=== PATIENT | female | born 1970 | race Caucasian/White ===

== ENCOUNTER 2019-11-25 11:13 | Emergency (ER) | payer OTHER, SELFPAY ==
[2019-11-25 11:24] VITALS: BP 136/85; PULSE 77; RESP 18; TEMP 36.6; O2SAT 100
--- NOTE | 2019-11-25 11:37 | ED.URI ---
HPI - URI/Sore Throat General Chief Complaint: Upper Respiratory Infection Stated Complaint: diarrhea,headache,body aches Time Seen by Provider: 11/25/19 11:37 Source: patient Mode of arrival: ambulatory Limitations: no limitations History of Present Illness HPI Narrative: Jaja Maria is a 49 yo female with no PMH with c/o body aches, diarrhea, fatigue. Started having symptoms 3 days ago and is gradually progressed is unable to eat, very fatigued, diarrhea and stomach cramping Related Data Allergies Allergy/AdvReac Type Severity Reaction Status Date / Time No Known Allergies Allergy Verified 07/19/19 07:31 Review of Systems Review of Systems: Narrative: CONSTITUTIONAL: Denies fever, chills, sweats.Has fatigue EYES: Denies visual changes, redness, discharge. ENT: Denies rhinorrhea, congestion, sore throat, otalgia. CARDIOVASCULAR: Denies chest pain, palpitations, edema. RESPIRATORY: Denies dyspnea, wheezing, occ cough GASTROINTESTINAL: has abdominal pain, nausea, no vomiting, has diarrhea. GENITOURINARY: Denies dysuria, hematuria, abnormal discharge SKIN: Denies rash or itching. NEUROLOGIC: Denies numbness, or focal weakness. PSYCHIATRIC: Denies anxiety or depression. 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 HEAD: normocephalic, atraumatic. EYES: Sclera clear/white. Vision is grossly intact. EARS: External ears normal, auditory canals clear and without drainage, TMs normal without perforation. Hearing grossly intact. NOSE: External nose normal without nasal discharge, nares with redness, no rhinorrhea. THROAT: Mucous membranes moist, posterior pharynx erythema NECK: Neck supple, non-tender CARDIOVASCULAR: Regular rate and rhythm without murmurs, gallops, or rubs. RESPIRATORY: Clear to auscultation. Breath sounds equal bilaterally. No wheezes, rales, or rhonchi. GASTROINTESTINAL: Abdomen soft, non-tender, SKIN: warm, intact with no suspicious lesions or rash, good texture and turgor. NEURO: awake, alert, and oriented to person, place and time. There were no obvious focal neurologic abnormalities. Steady gait EXTREMITIES: Normal range of motion. BACK: Nontender without deformity Course Course Emergency Course: Given Toradol IM here Started on Protonix and Imodium for upset stomach and diarrhea/abdominal cramping. Sent for COVID testing; discussed isolation until test results are back and to rest and hydrate at home Vital Signs Vital signs: Vital Signs Temperature 97.9 F 11/25/19 11:24 Pulse Rate 77 11/25/19 11:24 Respiratory Rate 18 11/25/19 11:24 Blood Pressure 136/85 11/25/19 11:24 Pulse Oximetry 100 11/25/19 11:24 Temperature 97.9 F 11/25/19 11:24 Pulse Rate 77 11/25/19 11:24 Respiratory Rate 18 11/25/19 11:24 Blood Pressure 136/85 11/25/19 11:24 Pulse Oximetry 100 11/25/19 11:24 MDM - URI/Sore Throat Differential Diagnosis Differential diagnosis: Likely upper respiratory infection, sinusitis, viral infection, influenza and other Discharge Plan Discharge Clinical Impression: Viral infection Diarrhea Qual
[2019-11-25] MEDS: KETOROLAC (*BKC) 60 MG/2 ML VIAL IM (12:08)
== END 2019-11-25 12:30 | disposition home or self-care (01) ==
PROVIDERS: Emergency Provider Nurse Practitioner
DX: B34.9 Viral infection, unspecified (principal); Z20.828 Contact with and (suspected) exposure to other viral communicable diseases
CPT/HCPCS: 96372; 99213; G0463; J1885

== ENCOUNTER 2019-12-23 14:20 | Emergency (ER) | payer OTHER, SELFPAY ==
[2019-12-23 14:30] VITALS: BP 142/82; PULSE 75; RESP 16; TEMP 37; O2SAT 100
--- NOTE | 2019-12-23 14:39 | ED.URI ---
HPI - URI/Sore Throat General Chief Complaint: Headache Stated Complaint: headache Time Seen by Provider: 12/23/19 14:39 Source: patient Mode of arrival: ambulatory Limitations: no limitations History of Present Illness HPI Narrative: Jaja Maria is a 49 yo female with GERD who comes to express care with 3 days of headache, sniffles, diarrhea- sent home from work because had fever of 102. Took 4 ibuprofen and is now afebile. Has cluster of symptoms that her job is now requiring her to be seen- suspect covid. Patient is aggravated but realizes has a viral syndrome Related Data Home Medications Medication Instructions Recorded Confirmed No Home Medications 12/23/19 12/23/19 Allergies Allergy/AdvReac Type Severity Reaction Status Date / Time No Known Allergies Allergy Verified 07/19/19 07:31 Review of Systems Review of Systems: Narrative: CONSTITUTIONAL:has had fever, chills, sweats. EYES: Denies visual changes, redness, discharge. ENT: has rhinorrhea, congestion, sore throat, otalgia. CARDIOVASCULAR: Denies chest pain, palpitations, edema. RESPIRATORY: Denies dyspnea, wheezing, occ cough GASTROINTESTINAL: Denies abdominal pain, nausea, vomiting, has diarrhea. GENITOURINARY: Denies dysuria, hematuria, abnormal discharge SKIN: Denies rash or itching. NEUROLOGIC: Denies numbness, or focal weakness. PSYCHIATRIC: Denies anxiety or depression. 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 There is no relevant family history pertinent to the presenting complaint. Patient has high blood pressure in office-to follow-up with primary care physician Exam Narrative: Exam Narrative: GENERAL: This is a well-nourished, well-developed patient, in mild distress. Now afebrile HEAD: normocephalic, atraumatic.has headache EYES: Sclera clear/white. Vision is grossly intact. EARS: External ears normal, . Hearing grossly intact. NOSE: External nose normal without nasal discharge, nares without redness, no rhinorrhea. THROAT: Mucous membranes moist, denies sore throat NECK: Neck supple, non-tender CARDIOVASCULAR: Regular rate and rhythm without murmurs, gallops, or rubs. RESPIRATORY: Clear to auscultation. Breath sounds equal bilaterally. No wheezes, rales, or rhonchi. GASTROINTESTINAL: Abdomen soft, non-tender, SKIN: warm, intact with no suspicious lesions or rash, good texture and turgor. NEURO: awake, alert, and oriented to person, place and time. There were no obvious focal neurologic abnormalities. Steady gait EXTREMITIES: Normal range of motion. BACK: Nontender without deformity Course Course Emergency Course: Needs covid test - order sent Patient told to hydrate and alternate Tylenol and ibuprofen for temperature and pain. Patient should isolate until culture test result is received Vital Signs Vital signs: Vital Signs Temperature 98.6 F 12/23/19 14:30 Pulse Rate 75 12/23/19 14:30 Respiratory Rate 16 12/23/19 14:30 Blood Pressure 142/82 H 12/23/19 14:30 Pulse Oximetry 100 12/23/19 14:30 Temperature 98.6 F 12/23/19 14:30 Pulse Rate 75 12/23/19 14:30 Respiratory Rate 16 12/23/19 14:30 Blood Pressure 142/82 H 12/23/19 14:30 Pulse Oximetry 100 12/23/19 14:30 MDM - URI/Sore Throat Differential Diagnosis Differential diagnosis: Likely upper respiratory infection, viral infection and other Medical Records Attestation: I reviewed the patient's medical records. Critical Care Time Critical Care Time Critical Care Time: No Discharge Plan Discharge Clinical Impression: Headache Nguyễn
--- NOTE | 2019-12-28 13:28 | PC.NURSE ---
was called with result by well puller head, negative for covid.
== END 2019-12-23 14:57 | disposition home or self-care (01) ==
PROVIDERS: Emergency Provider Nurse Practitioner
DX: R51 Headache (principal); R50.9 Fever, unspecified; Z20.828 Contact with and (suspected) exposure to other viral communicable diseases
CPT/HCPCS: 99213; G0463

== ENCOUNTER 2019-12-30 13:42 | Emergency (ER) | payer OTHER, SELFPAY | END 2019-12-30 13:43 | disposition left against medical advice (07) | LOC: EXPCOLL 13:45 | PROVIDERS: Emergency Provider Nurse Practitioner Family | DX: Z53.21 Procedure and treatment not carried out due to patient leaving prior to being seen by health care provider (principal) | CPT/HCPCS: 99199 ==

== ENCOUNTER 2020-12-11 14:49 | Emergency (ER) | payer OTHER, SELFPAY ==
[2020-12-11 14:57] VITALS: BP 144/72; PULSE 60; RESP 16; TEMP 36.3; O2SAT 99
--- NOTE | 2020-12-11 15:15 | ED.URI ---
HPI - URI/Sore Throat General Chief Complaint: Upper Respiratory Infection Stated Complaint: sinus infection Time Seen by Provider: 12/11/20 15:01 Source: patient and RN notes reviewed Mode of arrival: ambulatory Limitations: no limitations History of Present Illness HPI Narrative: Patient presents today complaining of a 5-day history of nasal congestion with sinus pressure, postnasal drip, right ear pressure. Denies cough, fever, shortness of breath, sore throat. Denies history of seasonal allergies or asthma. She has been taking Mucinex, Laine-Sylvester sinus, ibuprofen, Tylenol with mild short-term relief. MD elicited complaint: nasal congestion and sinus pain Related Data Allergies Allergy/AdvReac Type Severity Reaction Status Date / Time No Known Allergies Allergy Verified 12/11/20 15:02 Review of Systems Review of Systems: Narrative: CONSTITUTIONAL: Denies body aches, fever, chills, or sweats. EYES: Denies visual changes, redness, or discharge. ENT: Denies rhinorrhea, sore throat, or otalgia.+ Congestion, sinus pressure, right ear pressure, postnasal drip CARDIOVASCULAR: Denies chest pain, palpitations, or edema. RESPIRATORY: Denies cough or dyspnea. GASTROINTESTINAL: Denies abdominal pain, nausea, vomiting, or diarrhea. GENITOURINARY: Denies dysuria or hematuria. SKIN: Denies rash, itching, or wounds. MUSCULOSKELETAL: Denies back pain, joint pain, or myalgia. NEUROLOGIC: Denies headache, numbness, tingling, or weakness. PSYCH: Denies depression or anxiety. 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 Please see nursing chart for further information. There is no relevant family history pertinent to the presenting complaint Exam Narrative: Exam Narrative: GENERAL: Well-appearing, well-nourished, and in no acute distress. HEAD: Normocephalic, atraumatic. EYES: EOMI. No redness or drainage. Conjunctivae normal. ENT: Mucous membranes pink and moist. Nares congested with rhinorrhea. Small amount of clear fluid behind either TM without evidence of bacterial infection. Throat normal with moderate amount of clear postnasal drainage. Uvula midline. NECK: Normal AROM. Supple. No lymphadenopathy. CHEST: No respiratory distress. Clear to auscultation. HEART: Regular rate and rhythm. No murmur appreciated. Normal peripheral pulses. EXTREMITIES: Normal range of motion. No edema. SKIN: Warm, dry, no rash. Capillary refill normal. Normal skin turgor. NEURO: No focal deficits. Alert and oriented x3. Gait steady. PSYCH: Normal affect. No signs of depression or anxiety. Course Vital Signs Vital signs: Vital Signs Temperature 97.4 F L 12/11/20 14:57 Pulse Rate 60 12/11/20 14:57 Respiratory Rate 16 12/11/20 14:57 Blood Pressure 144/72 H 12/11/20 14:57 Pulse Oximetry 99 12/11/20 14:57 Temperature 97.4 F L 12/11/20 14:57 Pulse Rate 60 12/11/20 14:57 Respiratory Rate 16 12/11/20 14:57 Blood Pressure 144/72 H 12/11/20 14:57 Pulse Oximetry 99 12/11/20 14:57 Reviewed. Pt has been instructed to foll
== END 2020-12-11 15:20 | disposition home or self-care (01) ==
PROVIDERS: Emergency Provider Nurse Practitioner
DX: J32.9 Chronic sinusitis, unspecified (principal)
CPT/HCPCS: 99213; G0463

== ENCOUNTER 2021-12-10 14:52 | Emergency (ER) | payer OTHER, SELFPAY ==
--- NOTE | 2021-12-10 15:01 | ED.URI ---
HPI - URI/Sore Throat General Chief Complaint: Upper Respiratory Infection Stated Complaint: uri Time Seen by Provider: 12/10/21 15:03 Source: patient, RN notes reviewed and old records reviewed Mode of arrival: ambulatory Limitations: no limitations History of Present Illness HPI Narrative: 51-year-old female presents to the [facility] with nasal congestion, bilateral ear pressure and sinus drainage since waking up this morning. No treatment prior to arrival. Related Data Allergies Allergy/AdvReac Type Severity Reaction Status Date / Time No Known Allergies Allergy Verified 12/11/20 15:02 Review of Systems Review of Systems: All systems reviewed & are unremarkable except as noted in HPI and below Constitutional: Constitutional: Reports no additional constitutional complaints, Denies chills and Denies fever(s) Eyes: Eyes: Reports no additional eye complaints ENT: Reports as per HPI and Reports nasal congestion Cardiovascular: Cardiovascular: Reports no additional cardiovascular complaints Respiratory: Respiratory: Reports no additional respiratory complaints Gastrointestinal: Gastrointestinal: Reports no additional gastrointestinal complaints Musculoskeletal: Musculoskeletal: Reports no additional musculoskeletal complaints Integumentary/Breasts: Skin/Breast: Reports system reviewed and no additional complaints, except as docu Neurologic: Reports system reviewed and no additional complaints, except as documented Psychiatric: Psychiatric: Reports no additional psychiatric complaints Allergic/Immunologic: Allergic/Immunologic: Reports no additional allergic/immunologic complaints [facility] Past Medical History Medical History (Updated 12/10/21 @ 20:50 by Vane Herbert APRN) Bilateral carpal tunnel syndrome Heart murmur at No pertinent family history Seasonal allergies Surgical History Surgical History H/O foot surgery 04/2018 Family History Family History Other Diabetes mellitus Hypertension Social History Social History Smoking status: Never smoker Alcohol intake: never Additional living arrangements comments: 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 There is no relevant family history pertinent to the patient complaint. Exam Const: General: healthy appearing, no acute distress and alert Nutritional Appearance: well nourished Orientation/consciousness: patient oriented x3 Limitations: no limitations HENMT: Head: normal to inspection Ears: external ears normal, TM's normal bilaterally and EAC's normal General nose exam: Normal external nose present and Nasal discharge present clear bilateral Throat: posterior oropharynx normal Eyes: General: appearance normal, both eyes and all related structures Pupils: Equal, round and reactive pupils present Neck: Neck: normal visual inspection, no lymphadenopathy and no meningeal signs Chest: Chest palpation & inspection: normal inspection of the chest Resp: Effort & Inspection: normal respiratory effort and no use of accessory muscles Auscultation: clear to auscultation bilaterally, no crackles, no rales, no rhonchi and no wheezes Cardio: Rate: regular rate Rhythm: regular rhythm Back/Spine/Pelvis: Cervical Spine: normal cervical lordosis Thoracic/Lumbar Spine: thoracic and lumbar spine normal to inspection Skin: General skin exam: normal color Rashes: no rashes Wounds: no wounds Neuro: General: patient oriented x3, moves all extremities, no meningeal signs and no focal motor deficits Cranial nerves: Yes Equal, round and reactive pupils
[2021-12-10 15:02] VITALS: BP 136/73; PULSE 69; RESP 16; TEMP 36.9; O2SAT 98
== END 2021-12-10 15:22 | disposition home or self-care (01) ==
PROVIDERS: Emergency Provider Nurse Practitioner
DX: J06.9 Acute upper respiratory infection, unspecified (principal); J01.90 Acute sinusitis, unspecified
CPT/HCPCS: 99213; G0463

== ENCOUNTER 2021-12-12 14:51 | Outpatient (CLI) | payer OTHER, SELFPAY ==
--- NOTE | ~2021-12-12 | MM_ITS ---
EXAMINATION: MM screening [facility] BI w jonathan HISTORY: Screening mammogram TECHNIQUE: Craniocaudal and mediolateral oblique 3-D tomosynthesis images were obtained and synthetic 2-D images were generated. CAD analysis was submitted and interpreted. COMPARISON: 03/22/2012 BREAST PARENCHYMAL COMPOSITION: There are scattered areas of fibroglandular density. FINDINGS: RIGHT BREAST: There is no suspicious mass, calcification, or architectural distortion to suggest isaiah gnancy. There has been no significant interval change. LEFT BREAST: There is a possible mass in the middle third of the outer breast. IMPRESSION: 1. Possible left breast mass 2. Additional mammographic views and possible breast ultrasound are recommended. BI-RADS Category 0: Incomplete: Needs additional imaging evaluation. Reviewed, dictated and finalized at location A. IMPRESSION: 1. Possible left breast mass 2. Additional mammographic views and possible breast ultrasound are recommended . BI-RADS Category 0: Incomplete: Needs additional imaging evaluation.
== END 2021-12-12 14:52 | disposition home or self-care (01) ==
LOC: ANHIMG 14:52
PROVIDERS: Visit Provider Nurse Practitioner Obstetrics & Gynecology
DX: Z12.31 Encounter for screening mammogram for malignant neoplasm of breast (principal); R92.8 Other abnormal and inconclusive findings on diagnostic imaging of breast
CPT/HCPCS: 77063; 77067

== ENCOUNTER 2021-12-26 11:30 | Outpatient (CLI) | payer OTHER, SELFPAY ==
--- NOTE | ~2021-12-26 | MMUS_ITS ---
EXAMINATION: MM diagnostic gilse LT w jonathan, US breast LT limited HISTORY: Possible mass reported in middle third of outer left breast on 12/12/2021 screening mammogram TECHNIQUE: Additional 3-D tomosynthesis images of left breast were performed and synthetic 2-D images were generated. CAD analysis was submitted and interpreted. High resolution upper outer quadrant and lower outer quadrant left breast ultrasound was performed. COMPARISON: 12/12/2021 and 03/22/2012 bilateral screening mammogram examinations FINDINGS: MAMMOGRAPHIC FINDINGS: 4 mm irregular mammographic opacity in the outer mid to lower left breast on craniocaudal projection (craniocaudal Tomosynthesis image 23/69) is apparently new since 03/22/2012. ULTRASOUND: 4:00 1 cm from nipple: Irregular hypoechoic approximately 3.2 x 4 x 3.4 mm lesion is noted, correspon ding to the mammographic opacity. No internal vascularity or shadowing is noted. However, given the f act that this is a new mammographic finding in a postmenopausal patient, with ill-defined mammographi c margins and irregular sonographic shape, ultrasound-guided biopsy is recommended. IMPRESSION: 1. New mammographic ill-defined 4 mm mass at mid to lower outer left breast with corresponding irregu lar hypoechoic 4 mm mass on ultrasound at 4:00 1 cm from nipple 2. Ultrasound-guided biopsy of 4:00 left breast mass is recommended BI-RADS category 4, suspicious findings. Dr. Yates telephoned the report and ultrasound-guided biopsy recommendation of left breast 4:00 lesion on 12/26/2021 at 1230 hours to Kellie Varela Reviewed, dictated and finalized at location A. IMPRESSION: 1. New mammographic ill-defined 4 mm mass at mid to lower outer left breast wit h corresponding irregular hypoechoic 4 mm mass on ultrasound at 4:00 1 cm from nipple 2. Ultrasound-guided biopsy of 4:00 left breast mass is recommended BI-RADS category 4, suspicious findings. Dr. Yates telephoned the report and ultrasound-guided biopsy recommendation of l eft breast 4:00 lesion on 12/26/2021 at 1230 hours to Patti Varela. IMPRESSION: 1. New mammographic ill-defined 4 mm mass at mid to lower outer left breast wit h corresponding irregular hypoechoic 4 mm mass on ultrasound at 4:00 1 cm from nipple 2. Ultrasound-guided biopsy of 4:00 left breast mass is recommended BI-RADS category 4, suspicious findings. Dr. Yates telephoned the report and ultrasound-guided biopsy recommendation of l eft breast 4:00 lesion on 12/26/2021 at 1230 hours to Kellie Varela
== END 2021-12-26 11:31 | disposition home or self-care (01) ==
PROVIDERS: Visit Provider Nurse Practitioner Obstetrics & Gynecology
DX: N63.20 Unspecified lump in the left breast, unspecified quadrant (principal); R92.8 Other abnormal and inconclusive findings on diagnostic imaging of breast
CPT/HCPCS: 76642; 77061; 77065; G0279

== ENCOUNTER 2023-05-18 09:57 | Emergency (ER) | payer OTHER, SELFPAY ==
[2023-05-18 10:14] VITALS: BP 157/81; PULSE 59; RESP 16; TEMP 36.8; O2SAT 100
--- NOTE | 2023-05-18 10:45 | ED.URI ---
HPI - URI/Sore Throat General Chief Complaint: Upper Respiratory Infection Stated Complaint: Sinus Time Seen by Provider: 05/18/23 10:45 Source: patient Mode of arrival: ambulatory Limitations: no limitations History of Present Illness HPI Narrative: 52-year-old female presents with complaint of 10 days of sinus congestion, pressure, pain, headaches, postnasal drainage. afebrile. Has tried Mucinex and nasal spray without relief. No chest pain or shortness breath. all systems reviewed and negative except as noted above. Related Data Home Medications Medication Instructions Recorded Confirmed levothyroxine 25 mcg tablet mcg 05/18/23 Allergies Allergy/AdvReac Type Severity Reaction Status Date / Time No Known Allergies Allergy Verified 12/11/20 15:02 Review of Systems Review of Systems: CONSTITUTIONAL: Denies fever, chills, or sweats. EYES: Denies visual changes, redness, or discharge. ENT: Reports rhinorrhea, congestion, sore throat, sinus pressure, ear pressure CARDIOVASCULAR: Denies chest pain, palpitations, or edema. RESPIRATORY: Denies cough or dyspnea. GASTROINTESTINAL: Denies abdominal pain, nausea, vomiting, or diarrhea. GENITOURINARY: Denies dysuria or hematuria. SKIN: Denies rash or itching. MUSCULOSKELETAL: Denies back pain, joint pain, or myalgia. NEUROLOGIC: Denies headache, numbness, or weakness. PSYCHIATRIC: Denies anxiety or depression. All other systems reviewed are negative, except as documented in HPI. 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 There is no relevant family history pertinent to the presenting complaint. Exam Narrative: GENERAL: This is a well-nourished, well-developed patient, in no apparent distress. HEAD: normocephalic, atraumatic. EYES: PERRL. Sclera clear/white. Vision is grossly intact. EARS: External ears normal, auditory canals clear and without drainage, fluid bilateral TMs without perforation or erythema. Hearing grossly intact. NOSE: External nose normal with Purulent nasal drainage, moderate congestion with erythema and swelling to bilateral nares. Bilateral maxillary sinus tenderness on palpation. THROAT: Mucous membranes moist, Postnasal drainage with erythema. NECK: Neck supple, non-tender without lymphadenopathy, masses or thyromegaly. CARDIOVASCULAR: Regular rate and rhythm without murmurs, gallops, or rubs. RESPIRATORY: Clear to auscultation. Breath sounds equal bilaterally. No wheezes, rales, or rhonchi. SKIN: warm, Dry, intact with no suspicious lesions or rash, good texture and turgor. NEURO: awake, alert, and oriented to person, place and time. There were no obvious focal neurologic abnormalities. EXTREMITIES: No joint tenderness, effusion, or edema noted. Course Course Level of Care: Express Care Visit Vital Signs Vital signs: Vital Signs Temperature 36.8 C 05/18/23 10:14 Pulse Rate 59 L 05/18/23 10:14 Respiratory Rate 16 05/18/23 10:14 Blood Pressure 157/81 H 05/18/23 10:14 Pulse Oximetry 100 05/18/23 10:14 O
== END 2023-05-18 10:58 | disposition home or self-care (01) ==
PROVIDERS: Emergency Provider Nurse Practitioner Family; PCP Family Medicine
DX: J01.90 Acute sinusitis, unspecified (principal); B96.89 Other specified bacterial agents as the cause of diseases classified elsewhere
CPT/HCPCS: 99213; G0463

== ENCOUNTER 2024-03-22 08:35 | Emergency (ER) | payer OTHER, SELFPAY ==
[2024-03-22 08:44] VITALS: BP 149/68; PULSE 64; RESP 16; TEMP 36.4; O2SAT 100
--- NOTE | 2024-03-22 08:49 | ED.URI ---
HPI - URI/Sore Throat General Chief Complaint: Upper Respiratory Infection Stated Complaint: Sinus Time Seen by Provider: 03/22/24 08:50 Source: patient, RN notes reviewed and old records reviewed Mode of arrival: ambulatory Limitations: no limitations History of Present Illness HPI Narrative: 53-year-old female presents to the [facility] with complaints of sinus congestion, runny nose for 10-11 days. Denies fevers. Related Data Home Medications Medication Instructions Recorded Confirmed levothyroxine 25 mcg tablet 25 mcg PO DAILY 05/18/23 03/22/24 Allergies Allergy/AdvReac Type Severity Reaction Status Date / Time No Known Allergies Allergy Verified 03/22/24 08:37 Review of Systems Review of Systems: All systems reviewed & are unremarkable except as noted in HPI and below Constitutional: Constitutional: Reports no additional constitutional complaints ENT: Reports as per HPI, Reports nasal congestion and Reports nasal discharge Cardiovascular: Cardiovascular: Reports no additional cardiovascular complaints, Denies chest pain and Denies dyspnea Respiratory: Respiratory: Reports as per HPI, Denies chest congestion, Reports cough and Denies dyspnea Gastrointestinal: Gastrointestinal: Reports no additional gastrointestinal complaints, Denies abdominal pain, Denies nausea and Denies vomiting Musculoskeletal: Musculoskeletal: Reports no additional musculoskeletal complaints Integumentary/Breasts: Skin/Breast: Reports system reviewed and no additional complaints, except as docu PMFSH Past Medical History Medical History Bilateral carpal tunnel syndrome Heart murmur at No pertinent family history Seasonal allergies Surgical History Surgical History H/O foot surgery 04/2018 Family History Family History Other Diabetes mellitus Hypertension Social History Social History Smoking status: Never smoker Alcohol intake: never Living arrangements: with family Additional living arrangements comments: Occupation/Education: occupation 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 There is no relevant family history pertinent to the patient complaint. Exam Const: General: cooperative, healthy appearing, comfortable, no acute distress, well developed, alert and well nourished Nutritional Appearance: well nourished Orientation/consciousness: patient oriented x3 Limitations: no limitations HENMT: Head: normal to inspection Ears: hearing grossly normal bilaterally, external ears normal, TM's normal bilaterally, EAC's normal, mastoids normal and no periauricular adenopathy Face/Nose/Sinus: Normal external nose present, No nasal discharge present and face symmetric Face and sinus: normal facial exam, face symmetric and sinus tenderness Mouth: Yes Normal oral and palatal mucosa present, Yes lip normal and Yes tongue normal Throat: uvula midline, postnasal drainage and no uvular edema Eyes: General: appearance normal, both eyes and all related structures Alignment and Position: alignment normal Periorbital: periorbital findings normal Neck: Neck: normal visual inspection, full ROM, no lymphadenopathy and no meningeal signs Chest: Chest palpation & inspection: normal inspection of the chest Resp: Effort & Inspection: normal respiratory effort and able to speak in complete sentences Auscultation: clear to auscultation bilaterally, no crackles, no rales, no rhonchi and no wheezes Cardio: Rate: regular rate Skin: General skin exam: normal color and no ra
== END 2024-03-22 09:08 | disposition home or self-care (01) ==
PROVIDERS: Emergency Provider Nurse Practitioner; PCP Family Medicine
DX: J32.9 Chronic sinusitis, unspecified (principal)
CPT/HCPCS: 99213; G0463

== ENCOUNTER 2024-08-08 07:54 | Outpatient (CLI) | payer OTHER, SELFPAY ==
--- NOTE | ~2024-08-08 | MM_ITS ---
EXAMINATION: MM screening giles BI w jonathan HISTORY: Screening mammogram TECHNIQUE: Craniocaudal and mediolateral oblique 3-D tomosynthesis images were obtained and synthetic 2-D images were generated. CAD analysis was submitted and interpreted. COMPARISON: 12/12/2021, 03/22/2012 BREAST PARENCHYMAL COMPOSITION:Not Dense. There are scattered areas of fibroglandular density. FINDINGS: No suspicious mass, calcification, or architectural distortion are identified in either siobhan ast to suggest malignancy. There has been no suspicious interval change. IMPRESSION: No mammographic evidence of malignancy. Recommend routine screening mammography in one year. BI-RADS Category 1: Negative Reviewed, dictated and finalized at location .
--- OUTSIDE RECORDS SUMMARY | 2024-08-08 08:03 | XMS_ITS | Referral Summary ---
Author Organization [facility] Address [address] [place] [address] Care Team Providers Care Hot Iron Worker Name Role Phone Unavailable Primary Care Provider Unavailabl e Source Comments [email or web address],non-owned Affiliates and Associated Physician Practices is amultiple site organization consisting of ambulatory clinics and hospital sitesin [place], [place], [place] and [place]. This disclosure is being madepursuant to the Care Everywhere program and may not contain all information available regarding this patient. Last updated 18.[email or web address] Social History Tobacco Use Types Packs/Day Years Used Date Smoking Tobacco: Never Assessed Sex and Gender Information Value Date Recorded Sex Assigned at Not on file Gender Identity Not on file Sexual Orientation Not on file Plan of Treatment Not on file Procedures Procedure Name Priority Date/Time Associated Diagnosis Comments CYTOLOGY SMEAR PAP BARB 07/21/1998 9: 39 AM STUDENT OUTREACH COORDINATOR from Last 3 Months or Most Recently Relevant to Health Maintenance Results * CYTOLOGY SMEAR PAP (07/21/1998 9:39 AM STUDENT OUTREACH COORDINATOR) Result CASE NUMBER [id number] Comment: ORDERING PHYSICIAN BERE SRINIVASAN SPECIMEN TYPE PAP Smear Date 07/21/1998 Procedure Cervical/Endocervical, 2 smears received Specimen Adequacy Satisfactory for Evaluation Categorization Within Normal Limits Comment Inflammation Present. Snomed. 07/26/1998 1407 <1> Sap Crm Developer Brook Godwin (ASCP) Pathologist. Delmi Benoit M.D. PAP Footnote The PAP smear is only a screening procedure to aid in the detection of cervical cancer and its precursors. It is not a diagnostic procedure and should not be used as the sole means to detect cervical cancer. Both false negative and false positive results have been experienced. MISCELLANEOUS SAMPLES / Unknown 07/21/1998 9:39 AM STUDENT OUTREACH COORDINATOR 07/24/1998 9:39 AM STUDENT OUTREACH COORDINATOR Historical Provider LAB - PATHOLOGY/C YTOLOGY ORDERABLES from Last 3 Months or Most Recently Relevant to Health Maintenance
--- OUTSIDE RECORDS SUMMARY | 2024-08-08 08:03 | XMS_ITS | Encounter Summary ---
Author Organization [facility] Address [address] [place] [address] Care Team Providers Care Hand Lens Polisher Name Role Phone Marzena Lutz DO Primary Care Provider [phone] Encounter Details Date Type Department Care Team (Late st Contact Info) Description 01/21/2023 PurePlay Message Enc [facility] Family Medicine - [place] [address], [address] [place] [address] [place], [facility] Provider Omeprazole Social History Tobacco Use Types Packs/Day Years Used Date Smoking Tobacco: Never Smokeless Tobacco: Never Alcohol Use Standard Drinks/Week Comments No 0 (1 standard drink = 0.6 oz pur e alcohol) AUDIT-C Answer Date Recorded Frequency of Alcohol Consumption Never 11/16/2018 Average Number of Drinks Not on file 019 Frequency of Binge Drinking Not on file 10/30 PHQ-2 Answer Date Recorded Patient Health Questionnaire-2 Score 0 06/17/2022 Comments No Sex and Gender Information Value Date Recorded Sex Assigned at Female 07/12/2024 2:24 PM CELL EFFICIENCY SUPERVISOR Legal Sex Female 6:20 PM CDT Gender Identity Female 05/13/2021 9:19 PM CELL EFFICIENCY SUPERVISOR Sexual Orientation Straight 05/13/2021 9: 19 PM CELL EFFICIENCY SUPERVISOR documented as of this encounter Plan of Treatment Upcoming Encounters Date Type Department Care Team (Late st Contact Info) Description 08/16/2024 12:00 PM CDT Appointment [facility] [address] [place] [address] Marzena Lutz DO [address] [place], [place] [phone] documented as of this encounter Visit Diagnoses Not on filedocumented in this encounter Care Teams Hand Lens Polisher Relationship Specialty Start Date End Date Marzena Lutz DO [address] [place], [place] [id number] PCP - General FAMILY PRACTICE 12/27/21 documented as of this encounter
--- OUTSIDE RECORDS SUMMARY | 2024-08-08 08:03 | XMS_ITS | Clinical Summary ---
Author Organization [facility] Address [address] [place] [address] Care Team Providers Care Mileage Clerk Name Role Phone Marzena Sanchez DO Primary Care Provider [phone] Allergies No known active allergies Medications omeprazole (PRILOSEC) 40 MG capsuleIndication s:Gastroesophagea l reflux disease without esophagitis Take 1 capsule (40 mg total) by mouth daily. 90 capsule 05/09/20 24 Active levothyroxine (SYNTHROID) 25 MCG tabletIndications :Other specified hypothyroidism TAKE 1 AND 1/2 TABLETS(37 .5 MCG) BY MOUTH EVERY MORNING 135 tablet 05/09/20 24 Active meloxicam (MOBIC) 15 MG tabletIndications :Left elbow pain,Left hand pain,History of decompression of both ulnar nerves,Bilateral knee swelling One tablet with food 30 tablet 08/03/19 25 Active predniSONE (DELTASONE) 10 mg tabletIndications :Left elbow pain 3 tablet for 2 days then 2 tablet for 2 days then one tablet day for 2 days 10 tablet 07/12/19 25 025 Discontinued predniSONE (DELTASONE) 10 mg tabletIndications :Left elbow pain 3 tablet for 2 days then 2 tablet for 2 days then one tablet day for 2 days 12 tablet 07/12/19 25 025 Discontinued( erapy completed) Active Problems Problem Noted Date Diagnosed Date Breast lesion on mammography 12/28/2021 Gastroesophageal reflux disease without esophagi tis 12/28/2021 Stress incontinence 12/28/2021 Encounters Date Type Department Care Team Description 08/04/2024 Telephone [facility] Family Medicine - [place] [address], [address] [place] [address] Marzena Sanchez, Results (Xray of knee) 08/04/2024 Telephone [facility] [address], [address] [place] [phone] Marzena Sanchez, Orders 08/03/2024 12:43 PM DAIRY SUPPLIES SALES REPRESENTATIVE - 08/03/2024 11:59 PM DAIRY SUPPLIES SALES REPRESENTATIVE Hospital Encounter [facility] [address] [place] [address] Leanna Sancheza, DO Discharge Disposition: Home or Self Care (Routine Discharge) 08/03/2024 Telephone [facility] [address], [address] [place] [phone] Marzena Sanchez, Prior Authorization 08/02/2024 1:40 PM DAIRY SUPPLIES SALES REPRESENTATIVE Office Visit [facility] [address], [address] [place] [phone] Marzena Sanchez, Elbow Pain (Pt c/o LT elbow pain for about a month /And a lump behind the right knee since 2 days ago) 08/02/2024 Travel 07/14/2024 Telephone [facility] [address], [address] [place] [phone] Marzena Sanchez, Results 07/12/2024 3:15 PM DAIRY SUPPLIES SALES REPRESENTATIVE - 07/12/2024 11:59 PM DAIRY SUPPLIES SALES REPRESENTATIVE Hospital Encounter [facility] [address] [place] [address] Marzena Sanchez, Discharge Disposition: Home or Self Care (Routine Discharge) 07/12/2024 3:00 PM DAIRY SUPPLIES SALES REPRESENTATIVE Office Visit [facility] [address], [address] [place] [phone] Marzena Sanchez, Follow Up (Pt here for pain in left arm from the elbow to forearm area. Pt denies covid and flu vaccines. [facility] lab) 07/12/2024 Travel from Last 3 Months Immunizations Name Administration Dates Next Due Tdap (Adacel) 08/31/2023 Family History Medical History Relation Comments None Father No Known Problems Maternal Grandfather No Known Problems Maternal Grandmother smoker Mother No Known Problems Paternal Grandfather No Known Problems Paternal Grandmother Relation Status Comments Father Maternal Grandfather Maternal Grandmother Mother Paternal Grandfather Paternal Grandmother Social History Tobacco Use Types Packs/Day Years Used Date Smoking Tobacco: Never Smokeless Tobacco: Never Tobacco Cessation:Counseling Given: No Alcohol Use Standard Drinks/Week Comments No 0 (1 standard drink = 0.6 oz pur e alcohol) AUDIT-C Answer Date Recorded Frequency of Alcohol Consumption Never 11/16/2018 Average Number of Drinks Not on file 019 Frequency of Binge Drinking Not on file 10/30 PHQ-2 Answer Date Recorded Patient Health Questionnaire-2 Score 0 07/12/2024 Comments No Sex and Gender Information Value Date Recorded Sex Assigned at Female 07/12/2024 2:24 PM DAIRY SUPPLIES SALES REPRESENTATIVE Legal Sex Female 6:20 PM CDT Gender Identity Female 05/13/2021 9:19 PM DAIRY SUPPLIES SALES REPRESENTATIVE Sexual Orientation Straight 05/13/2021 9: 19 PM DAIRY SUPPLIES SALES REPRESENTATIVE Last Filed Vital Signs Vital Sign Reading Time Taken Comments Blood Pressure 134/52 08/02/2024 1:25 PM DAIRY SUPPLIES SALES REPRESENTATIVE Pulse 59 08/02/2024 1:25 PM DAIRY SUPPLIES SALES REPRESENTATIVE Temperature 36.4 C (97.5 F) 07/12/2024 2:32 PM DAIRY SUPPLIES SALES REPRESENTATIVE Respiratory Rate 16 08/02/2024 1:25 PM DAIRY SUPPLIES SALES REPRESENTATIVE Oxygen Saturation 95% 08/02/2024 1:25 PM DAIRY SUPPLIES SALES REPRESENTATIVE Inhaled Oxygen Concentration - - Weight 88.3 kg (194 lb 9.6 oz) 08/02/2024 1:25 P M DAIRY SUPPLIES SALES REPRESENTATIVE Height 167.6 cm (5' 6 ) 08/02/2024 1:25 PM DAIRY SUPPLIES SALES REPRESENTATIVE Body Mass Index 31.41 08/02/2024 1:25 PM DAIRY SUPPLIES SALES REPRESENTATIVE Plan of Treatment Upcoming Encounters Date Type Department Care Team (Late st Contact Info) Description 08/16/2024 12:00 PM CDT [facility] [address] [place], [place] [address] Marzena Sanchez, [address] [place], [place] [phone] Health Maintenance Due Date Last Done Comments Hepatitis B Vaccines (1 of 3 - 19+ 3-dose series) 10/10/1987 Zoster Vaccines (1 of 2) 2018 COVID-19 Vaccine ( - 2023-2 5 season) 2024 Mammogram Screening 02/18/2024 02/17/2022, 12/26/2021, 12/12/2021 Influenza Adult (#1) 2024 Annual Physical 08/30/2024 08/31/2023 Cervical Cancer Screening Pa p with HPV Testing (Age 30 to 64) Every 5 Years 04/22/2026 04/22/2021 Cervical Cancer Screening Pa p Smear (Age 30 to 64) Every 3 Years 03/15/2027 03/15/2024, 04/22/2021 Cervical Cancer Screening wi th HPV 03/15/2027 Colorectal Cancer Screening FIT-DNA (3 Years) 08/03/2027 08/02/2024, 06/05/2021, 06/05/2021 DTaP, Tdap and Td Vaccines ( 2 - Td or Tdap) 08/30/2033 08/31/2023 Hepatitis C Completed 12/31/2021 PHQ-2 (Physician [place]) Completed 07/12/2024 Meningococcal B Vaccine Aged Out No l onger eligible based on patient's age to complete this topic Meningococcal Vaccine Aged Out No jacquelin rick eligible based on patient's age to complete this topic Pneumococcal Vaccine: Pediatrics (0 to 5 Years) and At-Risk Patients (6 to 64 Years) Aged Out No longer eligible b ased on patient's age to complete this topic RSV Immunizations Under 20 Months Aged Out No longer eligible b ased on patient's age to complete this topic Procedures Procedure Name Priority Date/Time Associated Diagnosis Comments XR KNEE RT 3V Routine 08/03/2024 1:09 PM DAIRY SUPPLIES SALES REPRESENTATIVE Bilateral knee swelling XR KNEE LT 3V Routine 08/03/2024 1:09 PM DAIRY SUPPLIES SALES REPRESENTATIVE Bilateral knee swelling COLOGUARD (EXACT SCIENCE) Routine 08/02/2024 7:35 AM DAIRY SUPPLIES SALES REPRESENTATIVE Screening for colon cancer XR ELBOW LT M3V Routine 07/12/2024 3:49 PM DAIRY SUPPLIES SALES REPRESENTATIVE Left elbow pain HEPATITIS C ANTIBODY Routine 12/31/2021 8:22 AM CDT Gastroesophageal reflux disease without esophagitis Need for hepatitis C screening test MAMMOGRAM GENERIC (SCAN ORDER) 12/26/2021 OUTSIDE CYTOPATH CERV/VAG INTERPRET (PAP) 04/22/2021 from Last 3 Months or Most Recently Relevant to Health Maintenance Results * XR KNEE RT 3V (08/03/2024 1:09 PM DAIRY SUPPLIES SALES REPRESENTATIVE) Anatomical Region Laterality Modality Knee Radiographic Nelsy ging 08/03/2024 1:41 PM DAIRY SUPPLIES SALES REPRESENTATIVE Impressions 08/03/2024 1:43 PM DAIRY SUPPLIES SALES REPRESENTATIVE IMPRESSION: No acute findings. Referred By: Interpreted By: Woo Orosco MD, 08/03/2024 1:41 PM Narrative 08/03/2024 1:43 PM DAIRY SUPPLIES SALES REPRESENTATIVE [address] [address] EXAMINATION: XR KNEE RT 3V HISTORY: Pain, swelling DATE: 08/03/2024 12:52 PM COMPARISON: None TECHNIQUE: AP, lateral and sunrise views of the right knee. 3 images. FINDINGS: No acute fracture or dislocation. No joint effusion. Joint spaces are unremarkable. Procedure Note Woo Orosco MD - 08/03/[address] [address] EXAMINATION: XR KNEE RT 3V HISTORY: Pain, swelling DATE: 08/03/2024 12:52 PM COMPARISON: None TECHNIQUE: AP, lateral and sunrise views of the right knee. 3 images. FINDINGS: No acute fracture or dislocation. No joint effusion. Jointspaces are unremarkable. IMPRESSION: No acute findings. Referred By: Interpreted By: Woo Orosco MD, 08/03/2024 1:41 PM us Marzena Bolivar DO GENERAL IMAGING Final Result * XR KNEE LT 3V (08/03/2024 1:09 PM DAIRY SUPPLIES SALES REPRESENTATIVE) Anatomical Region Laterality Modality Knee Radiographic Nelsy ging 08/03/2024 1:44 PM DAIRY SUPPLIES SALES REPRESENTATIVE Impressions 08/03/2024 1:46 PM DAIRY SUPPLIES SALES REPRESENTATIVE IMPRESSION: Negative. Referred By: Interpreted By: Woo Orosco MD, 08/03/2024 1:44 PM Narrative 08/03/2024 1:46 PM DAIRY SUPPLIES SALES REPRESENTATIVE [place] [id number] EXAMINATION: XR KNEE LT 3V HISTORY: Pain DATE: 08/03/2024 12:52 PM COMPARISON: November 16, 2018 TECHNIQUE: AP, lateral and sunrise views of the left knee. 3 images. FINDINGS: No acute fracture or dislocation. No joint effusion. Joint spaces are unremarkable. Procedure Note Woo Orosco MD - 08/03/[address] [address] EXAMINATION: XR KNEE LT 3V HISTORY: Pain DATE: 08/03/2024 12:52 PM COMPARISON: November 16, 2018 TECHNIQUE: AP, lateral and sunrise views of the left knee. 3 images. FINDINGS: No acute fracture or dislocation. No joint effusion. Jointspaces are unremarkable. IMPRESSION: Negative. Referred By: Interpreted By: Woo Orosco MD, 08/03/2024 1:44 PM Marzena Bolivar DO GENERAL IMAGING Final Result * XR ELBOW LT M3V (07/12/2024 3:49 PM DAIRY SUPPLIES SALES REPRESENTATIVE) Anatomical Region Laterality Modality Elbow Radiographic Nelsy ging 07/14/2024 7:45 AM DAIRY SUPPLIES SALES REPRESENTATIVE Impressions 07/14/2024 7:45 AM DAIRY SUPPLIES SALES REPRESENTATIVE IMPRESSION: No acute findings Ordered By: MARZENA SANCHEZ Interpreted By: Yordan Lee MD, 07/14/2024 7:45 AM Narrative 07/14/2024 7:45 AM DAIRY SUPPLIES [place] [address] 3 VIEWS OF THE LEFT ELBOW CLINICAL HISTORY: Pain COMPARISON: None 3 views of the left elbow demonstrate the bony elements to be intact. There is no evidence of fracture or dislocation. No effusion is seen. The surrounding soft tissues appear normal. Procedure Note Yordan Lee MD - 07/14/2024 [place] [address] 3 VIEWS OF THE LEFT ELBOW CLINICAL HISTORY: Pain COMPARISON: None 3 views of the left elbow demonstrate the bony elements to be intact.There is no evidence of fracture or dislocation. No effusion is seen. Thesurrounding soft tissues appear normal. IMPRESSION: No acute findings Ordered By: MARZENA SANCHEZ Interpreted By: Yordan Lee MD, 07/14/2024 7:45 AM Marzena Sanchez DO GENERAL IMAGING Final Result * HEPATITIS C ANTIBODY (12/31/2021 8:22 AM CDT) HEPATITIS C AB NON-REACTI VE NON-REACTI VE 12/31/2021 9:54 AM CDT [facility] 12/31/2021 8:22 AM CDT us Marzena Bolivar [facility] Final Result [facility] [address] [place] [address], * MAMMOGRAM GENERIC (12/26/2021) Anatomical Region Laterality Modality Other 12/26/2021 Narrative 12/26/2021 Ordered by an unspecified provider. us Documents Scanned SCANNING Final Result * PAP SMEAR WITH HPV (04/22/2021) 04/22/2021 Narrative 04/22/2021 Ordered by an unspecified provider. us Documents Scanned SCANNING Final Result from Last 3 Months or Most Recently Relevant to Health Maintenance Insurance Care Teams Mileage Clerk Relationship Specialty Start Date End Date Marzena Sanchez DO [address] [place] [id number] PCP - General FAMILY PRACTICE 12/27/21
--- OUTSIDE RECORDS SUMMARY | 2024-08-08 08:03 | XMS_ITS | Data Portability ---
Author Organization [facility] [place] Address [address] [place] [address] Care Team Providers Care Cut Out Operator Name Role Phone IRVING, MARC Primary Care Provider Assessment Encounter Date Assessment Date Assessment LastModified by Organization Details LastModified Time 04/22/2021 04/22/2021 Annual gynecological exam performed. Patient will come back in a year unless there are new symptoms. Not available 04/22/2021 10:05:40 03/15/2024 03/15/2024 Annual gynecological exam performed. Patient will come back in a year unless there are new symptoms. [email or web address] Not available 03/15/2024 17:15:00 Plan of Treatment Reminders Order Date Submit Date Provider Last Modified By Organization Details Last Modified Time Details Appointments None recorded. Lab None recorded. Referral None recorded. Procedures None recorded. Surgeries None recorded. Imaging MAMMO, screening, digital, bilateral 2023 024 [facility] - Breast Ctr, [address], [address], [place], [address], 5 04:01:47 DEXA, axial skeleton + vertebral fracture assessment 2023 024 [facility] (Imaging), [address], [place], [address], 4 04:03:32 Medication Orders None recorded. Patient TargetsNo targets recorded. Patient InstructionsNo instructions recorded. Reason for Referral None Reported. 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 Elect staci carrasquillo randy d by Alyia oTmlin ed, CT on 2020 at 7:14 PM ----- ----- ----- ----- ----- ----- ----- ----- ----- ----- ----- ----- ----- ----- ----- ----- ----- ---- HPV RESUL TS: HPV mRNA E6/E7 : No HPV mRNA Detec vickie NOTE: This high risk HPV mRNA assay detec ts fourt een high- risk HPV types (16, 18, 31, 33, 35, 39, 45, 51, 52, 56, 58, 59, 66, 68) witho ut diffe renti ation . COMME NT: Note: This speci men was revie wed by a Cytot echno logis t and/o r Patho logis t (as indic ated in this repor t) after evalu ation using the Thinp rep Imagi ng Syste m. CLINI CONNIE INFOR MATIO N: Menst rual Statu s: LMP (if appli cable ): Clini connie Histo ry/Pr eviou s Pap: Type of Neopl yonny (if appli cable ): Signi fican t Clini connie Findi ngs: Other Histo ry: Hormo mark (if appli cable ): PAP EDUCA ОЛЕГ L NOTE: The Pap Test is a scree martín test with an inher ent false negat matilda rate. Liqui d-bas e sampl ing may decre ase, but will not elimi lisa, false negat matilda resul ts. A negat matilda resul t does not precl ude the prese nce and/o r devel opmen t of disea se, since the prese nce of abnor mal cells in the sampl e depen ds on the locat ion of the lesio n and sampl ing techn ique. Kevyn nued regul ar scree martín is the best metho d of cance r preve ntion . If repor vickie cytol ogic findi ng do not corre late with physi connie and/o r histo rical findi ngs, furth er inves tigat ion is recom elvia d, as clini dell warryovanny nted. Not Available [facility] (Lab) [address], [place], [address], 05/01/2021 20:16:36 03/15/20 24 03/15/2024 IMAGE GUIDE D PAP AND HPV REGAR DLESS image guided Pap, HPV regardless of Pap result SEE RESULT S BELOW CASE REPOR T: Cytol ogy Gynec ologi connie Repor t Case: [id number] Autho riute g Provi angie: Elaine Green MD Colle cted: 03/15 1650 Order ing Locat ion: [place] Patho logy Recei kiko: 03/16 0627 First Scree n: Chica Obrien h, CT Speci men: Scree martín Pap - Image d, Cervi x STATE MENT OF ADEQU ACY: Satis facto ry for evalu ation Trans forma tion zone compo nent absen t ----- ----- ----- ----- ----- ----- ----- ----- ----- ----- ----- ----- ----- ----- ----- ----- ----- ---- FINAL DIAGN OSIS: Negat matilda for Intra epith elial Lesio harry or Shannon gonzales (NIL) . Elect staci jack by Chica Obrien, CT on 03/21 at 12:52 PM ----- ----- ----- ----- ----- ----- ----- ----- ----- ----- ----- ----- ----- ----- ----- ----- ----- ---- HPV RESUL TS: HPV mRNA E6/E7 : No HPV mRNA Detec vickie NOTE: This high risk HPV mRNA assay detec ts fourt een high- risk HPV types (16, 18, 31, 33, 35, 39, 45, 51, 52, 56, 58, 59, 66, 68) witho ut diffe renti ation . COMME NT: This speci men was revie wed by a Cytot echno logis t and/o r Patho logis t (as indic ated in this repor t) after evalu ation using the Thinp rep Imagi ng Syste m. CLINI CONNIE INFOR MATIO N: Menst rual Statu s: LMP (if appli cable ): Clini connie Histo ry/Pr eviou s Pap: Type of Neopl yonny (if appli cable ): Signi fican t Clini connie Findi ngs: Other Histo ry: Hormo mark (if appli cable ): PAP EDUCA ОЛЕГ L NOTE: The Pap Test is a scree martín test with an inher ent false negat matilda rate. Liqui d-bas ed sampl ing may decre ase, but will not elimi lisa, false negat matilda resul ts. A negat matilda resul t does not precl ude the prese nce and/o r devel opmen t of disea se, since the prese nce of abnor mal cells in the sampl e depen ds on the locat ion of the lesio n and sampl ing techn ique. Kevyn nued regul ar scree martín is the best metho d of cance r preve ntion . If repor vickie cytol ogic findi ng do not corre late with physi connie and/o r histo rical findi ngs, furth er inves tigat ion is recom elvia d, as clini dell moon nted. Not Available [facility] (Lab) [address], [place], [address], 03/21/2024 13:56:32 12/13/19 22 12/12/2021 MAMMO , scree martín, digit al, bilat eral No observ ation record ed. [address] [facility], [place], [address], 12/19/2021 15:34:28 12/13/19 22 12/12/2021 MAMMO , scree martín, digit al, bilat eral No observ ation record ed. [address], [place], [address], 12/13/2021 17:31:37 12/27/19 22 12/26/2021 MAMMO , diagn ostic , tomos ynthe sis, unila teral No observ ation record ed. [address] [address], [place], [address], 12/30/2021 17:57:54 04/21/20 22 02/17/2022 MAMMO , diagn ostic , unila teral No observ ation record ed. [email or web address] [place] [address] - Breast Ctr [address], [place], [address], 12/25/2022 12:45:28 Result Notes None recorded. Procedures Surgical History Date Name Laterality Status Provider Name and Address Organization Details Recorded Time 1 Date of Last Pap Smear completed Peyton Dee [facility] 03/15/2024 17:19:52 8 Unlisted px foot/toes completed Ana Cristina Nuñez, [facility] [address], [place], [address], [facility] 04/23/2021 09:24:15 Imaging Results Imaging Date Name Status LastModified by Organiz ation Details LastModified Time 12/12/2021 MAMMO, screening, digital, bilateral completed [address] [id number] [facility] [address], [place], [address], 12/19/2021 15:34:28 12/12/2021 MAMMO, screening, digital, bilateral completed [address], [place], [address], 12/13/2021 17:31:37 12/26/2021 MAMMO, diagnostic, tomosynthesis, unilateral completed [address], [place], [address], 12/30/2021 17:57:54 02/17/2022 MAMMO, diagnostic, unilateral completed [address] - Breast Ctr [address], [place], [address], 12/25/2022 12:45:28 Procedure Notes None recorded. Medical Equipment None Reported. Allergies No known drug allergies Medications Name Sig Start Date Stop Date Status Note LastModified by Organization Details LastModified Time amoxicillin 500 mg capsule TAKE ONE CAPSULE BY MOUTH THREE TIMES DAILY FOR 7 DAYS UNTIL ALL TAKEN 04/22 completed Not Available Not Available Not Available omeprazole 40 mg capsule,del ayed release active Not Available Not Available Not Available levothyroxi ne 25 mcg tablet active Not Available Not Available Not Available prednisone 50 mg tablet TAKE 1 TABLET BY MOUTH DAILY FOR 5 DAYS 04/22 completed Not Available Not Available Not Available methylpredn isolone 4 mg tablets in a dose pack FOLLOW PACKAGE DIRECTION S active Not Available Not Available No t Available amoxicillin 875 mg-potassiu m clavulanate 125 mg tablet TAKE 1 TABLET BY MOUTH EVERY 12 HOURS FOR 7 DAYS 03/15 completed Not Available Not Available Not Available ID NOW COVID-19 Test Kit TEST DIRECTED TODAY 04/22 completed Not Available Not Available Not Available Vitals Date Recorded Body height Body mass index (BMI) Body weight Systolic blood pressure Diastolic blood pressure Provider Name and Address Organization Details Last Updated DateTime 04/22/2021 166.37 cm 32.8 kg/m2 74420.47 g 122 mm[Hg] 76 mm[Hg] Kandace Burns [facility] 10:06:45 Date Recorded Body height Body mass index (BMI) Body weight Systolic blood pressure Diastolic blood pressure Provider Name and Address Organization Details Last Updated DateTime 03/15/2024 166.37 cm 31.6 kg/m2 02639.33 g 131 mm[Hg] 84 mm[Hg] Peyton Dee [facility] 4 17:19:09 Social History Question Answer Notes LastModified by Organizat ion Details LastModified Time Tobacco Smoking Status Never Smoker Kandace Burns [facility] 04/22/2021 10:09:08 Do You Have An Advance Directive? No Information not available 04/22/2021 What Is Your Level Of Alcohol Consumption? Occasional Information not available 04/22/2021 Are You Blind Or Do You Have Difficulty Seeing? No Information not available 04/22/2021 What Is Your Level Of Caffeine Consumption? Occasional Information not available 04/22/2021 How Much Tobacco Do You Chew? None Information not available 04/22/2021 In The 14 Days Before Symptom Onset, Have You Had Close Contact With A Laboratory-confir med COVID-19 While That Case Was Ill? No Information not available 04/22/2021 In The 14 Days Before Symptom Onset, Have You Had Close Contact With A Person Who Is Under Investigation For COVID-19 While That Person Was Ill? No Information not available 04/22/2021 Have You Been To An Area Known To Be High Risk For COVID-19? No Information not available 04/22/2021 Are You Deaf Or Do You Have Serious Difficulty Hearing? No Information not available 04/22/2021 What Type Of Diet Are You Following? REGULAR Information not available 04/22/2021 What Is The Highest Grade Or Level Of School You Have Completed Or The Highest Degree You Have Received? 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 No Information not available 04/22/2021 Do You Use Protection During Sex? Usually Information not available 04/22/2021 Do You Use Your Seat Belt Or Car Seat Routinely? Yes Information not available 04/22/2021 Do You Have Smoke And Carbon Monoxide Detectors In Your Home? Yes Information not available 04/22/2021 How Much Tobacco Do You Smoke? No Information not available 04/22/2021 Do You Feel Stressed (tense, Restless, Nervous, Or Anxious, Or Unable To Sleep At Night)? [id number] Information not available 04/22/2021 Do You Use Any Illicit Or Recreational Drugs? No Information not available 04/22/2021 Do You Use Sunscreen Routinely? Yes Information not available 04/22/2021 Have You Used IV Drugs? No Information not available 04/22/2021 Sex: Unknown Functional Status Question Answer Note LastModified by Organizat ion Details LastModified Time Are you able to walk? YESWOREST Information not available 04/22/2021 What is your exercise level? Occasional Information not available 04/22/2021 Mental Status None recorded. Family History Nothing Reported. Medical History Condition Response Allergies (Food, seasonal, environmental ) N Other N Blood Transfusion N Drug/Latex Allergies/Reactions N Breast Cancer N Dermatologic Disorders N Lung Disease N Defects or Inherited Disease N Breast Problem N Gestational Diabetes N Hematologic disorders N Anesthesia Complications N History of STI N Deep Vein Thrombosis N Polycystic ovary syndrome N Anxiety Disorder N Autoimmune disease N Arthritis N Infertility N Polyps N Acid Reflux (GERD) N History of abnormal pap N Cancer N Stroke N Varicosities N Neurologic/Epilepsy N Endometriosis N High Cholesterol N Headaches N Fibromyalgia N Kidney Disease N Heart Problems N Kidney or Bladder Problems N Thyroid Problems N GI Problems N Eating Disorder N Anemia N Art (IVF or FET) N Psychiatric Illness N Ovarian Cancer N Diabetes N Pulmonary (TB, Asthma) N Hepatitis/Liver Disease N No Past Medical History N Eczema N Urinary Tract Infection N Abuse/Domestic Violence N Asthma N Trauma/Violence N Depression/ depression N Heart Disease N Pre-Eclampsia N Hypertension N Osteoporosis N Thrombophilias N Gynecological History Statement/Question Response Abnormal Pap N Date of Last Mammogram N STIs/STDs N HPV Vaccine N Current Control Method Menopause 11 Age at First Child 23 Sexually Active? N Age of first menstrual cycle 11 Date of Last Pap Smear 04/22/2021 Sexual Problems? N LMP Unknown N Obstetrics History GPAL:G 2 P 2 0 0 2 Type Value Full Term 2 Living 2 Total 2 Past Encounters Encounter ID Performer Location Encounter Start Date Encounter Closed Date Diagnosis/Indication Diagnosis SNOMED-CT Code Diagnosis ICD10 Code Diagnosis Note [id number] [facility] [address] [address] 04/22/2021 09:40:06 04/23/2021 09:48:19 Gynecologic examination 36029161 Z01.419 Z11.51 Take Calcium with Vitamin D 12-1500mg daily. Do monthly self breast exams. It is advised to get annual flu shot in the fall and she could obtain at [facility] or [facility] clinic. If you haven't received the Tdap vaccine in the last 10 years you should obtain one as well. Have mammogram yearly, bone density every 2-3 years and colonoscop y every 5-10 years depending on findings and history. Engage in daily exercise of low impact aerobic exercise 45-60 minutes 4-5 times weekly. Avoid tobacco and illicit drugs as well as using moderation with alcohol intake less than 1-2 8 oz beverages daily. This lifestyle behavior pattern will lead to less health conditions and longer life span. If BMI greater than 25 weight watchers or dietary consult advised. Questions have been answered. Patient appears to understand instructio ns, but if you have any further questions call or respond to this email Pap/hpv sentMammo orderedCol on/Dexa-di scussed with PCPNo issues or concernsWi dowedNot SAGenetic screen discussed [id number] CECI DREW MD [facility] [address] [address] 03/15/2024 17:03:07 03/16/2024 07:53:24 Gynecologic examination [id number] Z01.419 [facility]- Cervical cancer screening: Pap smear obtained today, will follow up on the results with the patient as they become available- Breast cancer screening: mammogram ordered- HPV immunizati on: does not qualify- STD testing: declined- hereditary cancer screening: does not qualify for testing- bone mineral density screening: high risk due to early menopause, will screen with DEXA Health Concerns Section Related Observation LastModified by Organization Detai ls LastModified Time None Recorded Concern Status LastModified by Organization Details LastModified Time None Recorded Advance Directives Directive N: Payers Encounter Date Sequence Insurance Name Policy Number Policy Velazquez Covered Member ID Velazquez Member ID Guarantor Name 04/22/2021 1 [employer] - DOS PRIOR TO 20 - [facility] BENEFITS PLAN [id number] Jaja Maria [id number] OI [id number] PIPE Maria 03/15/2024 1 [employer] - [facility] BENEFITS PLAN (PPO) [id number] Jaja Maria [id number] OI [id number] SOI Jaja Maria Notes Date Note Type Note Provider Name and Address Organization Details Recorded Time 04/22/2021 text/html 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 Post-MenopausalRe ported bypatient.[place]au abby Symptoms:no menopausal symptoms; normal vaginal lubrication Vaginal Bleeding:history of menopause having occurred; no history of post menopausal bleeding Urinary Symptoms:no hematuria; no incontinence; no nocturia; no urinary frequency Vulva:no genital lesion; no vulvar atrophy Vagina:normal vaginal discharge; no vaginal atrophy Breast:no breast lump; no nipple discharge; no breast pain Sexual Complaints:no sexual complaints Psychological Symptoms:no depression; no anxiety Preventive Measures:encourag e regular mammograms starting age 40; encourage self breast examination; encourage regular exercise; encourage no tobacco use; needs to schedule mammogram; needs to schedule colonoscopy; needs to schedule bone density Ana Cristina Nuñez, [facility] [address], [place], [address], [place] [facility] 04/23/2021 09:27:20 03/15/2024 text/html Presents today for her annual well-woman exam. Denies abnormal vaginal discharge. She is sexually active and denies dyspareunia. She has not noticed any changes or masses in her breasts. Up to date on mammograms. Menopausal, no PMB. No hx of abnormal pap smears. CECI DREW MD [address], [place], [address], [facility] 03/15/2024 17:35:20 OBGyn Episode Ob Episode Information Episode Created Date Number of Fetuses Patient Bloodtype Patient rh Status Prepregnancy Weight lbs Domestic Partner Domestic Partner Phone Father Name Intermediate School Teacher Status 04/22/20 21 1 CLOSED Fetus Data First Name Last Name Admitted to NICU Weight (g) Sex Living Outcome Pediatric Complications Fetus ID Race Codes Race Delivery Type F Full Term [id number] Vaginal Delivery De Calculation Initial De Date Initial Exam Date Initial Exam Provider Initial Ultrasound Date Last Menstrual Period Date Ultra Sound Weeks Gestation 0 Eighteen To Twenty Week De Update Ultra Sound Date Fundal Height At Umbil Quickening Date Ultra Sound Latest Weeks Gestation Final De Confirmed By Final De Confirmed Date Final De Date Ultra Sound Latest Days Gestation 0 0 Menstrual History Last Menstrual Date Menses Monthly On Bcp Conception Prior Menses Frequency Hcg Plus Date Menarche Onset Age Delivery Information Delivery Date Delivery Type Labor Anesthesia Weeks Gestation Incision Type Labor Labor Length Hrs Delivered By Post Complications Tubal Sterilization Discharge Date Comments 4 Discharge Information Feeding Method Contraceptive Method Maternal HG B and HCT Levels Ob Episode Information Episode Created Date Number of Fetuses Patient Bloodtype Patient rh Status Prepregnancy Weight lbs Domestic Partner Domestic Partner Phone Father Name Intermediate School Teacher Status 04/22/20 21 1 CLOSED Fetus Data First Name Last Name Admitted to NICU Weight (g) Sex Living Outcome Pediatric Complications Fetus ID Race Codes Race Delivery Type M Full Term [id number] Vaginal Delivery De Calculation Initial De Date Initial Exam Date Initial Exam Provider Initial Ultrasound Date Last Menstrual Period Date Ultra Sound Weeks Gestation 0 Eighteen To Twenty Week De Update Ultra Sound Date Fundal Height At Umbil Quickening Date Ultra Sound Latest Weeks Gestation Final De Confirmed By Final De Confirmed Date Final De Date Ultra Sound Latest Days Gestation 0 0 Menstrual History Last Menstrual Date Menses Monthly On Bcp Conception Prior Menses Frequency Hcg Plus Date Menarche Onset Age Delivery Information Delivery Date Delivery Type Labor Anesthesia Weeks Gestation Incision Type Labor Labor Length Hrs Delivered By Post Complications Tubal Sterilization Discharge Date Comments 8 Discharge Information Feeding Method Contraceptive Method Maternal HG B and HCT Levels
--- OUTSIDE RECORDS SUMMARY | 2024-08-08 08:03 | XMS_ITS | Clinical Summary ---
Author Organization [facility] Address [address] [place] [address] Care Team Providers Care Food And Beverage Outlets Manager Name Role Phone Unavailable Primary Care Provider Unavailabl e Source Comments [facility],non-owned Affiliates and Associated Physician Practices is amultiple site organization consisting of ambulatory clinics and hospital sitesin [place], [place], [place] and [place]. This disclosure is being madepursuant to the Care Everywhere program and may not contain all information available regarding this patient. Last updated 18.[facility] Social History Tobacco Use Types Packs/Day Years Used Date Smoking Tobacco: Never Assessed Sex and Gender Information Value Date Recorded Sex Assigned at Not on file Gender Identity Not on file Sexual Orientation Not on file Plan of Treatment Health Maintenance Due Date Last Done Comments COLOGUARD (AGES 45-75) - COL ON CA SCREENING 1968 COLON MONITORING 1968 COLONOSCOPY - COLON CA SCREENING 1968 CT COLONOGRAPHY - COLON CA SCREENING 1968 Colorectal Cancer Screening 1968 FIT - COLON CA SCREENING 1968 FLEX SIG - COLON CA SCREENING 1968 LIPID TESTING 1968 MAMMOGRAM 1968 HIV SCREENING 10/10/1983 HEPATITIS C SCREENING 10/05/1986 DTAP/TDAP/TD VACCINES (1 - Tdap) 10/10/1987 HEPATITIS B VACCINE (1 of 3 - 19+ 3-dose series) 10/10/1987 PAP SMEAR 07/21/2001 07/21/1998, 04/18/1997, 04/30/1996 PNEUMOCOCCAL VACCINE 50+ (1 of 1 - PCV) 2018 ZOSTER VACCINE (1 of 2) 2018 COVID-19 VACCINE ( - 2023-2 5 season) 2024 INFLUENZA VACCINE (#1) 2024 DEPRESSION SCREENING 06/01/2024 HIB VACCINE Aged Out No longer eligi ble based on patient's age to complete this topic HPV VACCINE Aged Out No longer eligi ble based on patient's age to complete this topic MENINGOCOCCAL (Group B) VACCINE Aged Out No longer eligible b ased on patient's age to complete this topic MENINGOCOCCAL VACCINE Aged Out No jacquelin rick eligible based on patient's age to complete this topic PNEUMOCOCCAL VACCINE Aged Out No long er eligible based on patient's age to complete this topic Procedures Procedure Name Priority Date/Time Associated Diagnosis Comments CYTOLOGY SMEAR PAP BARB 07/21/1998 9: 39 AM MATERIAL INSPECTOR from Last 3 Months or Most Recently Relevant to Health Maintenance Results * CYTOLOGY SMEAR PAP (07/21/1998 9:39 AM MATERIAL INSPECTOR) Result CASE NUMBER [id number] Comment: ORDERING PHYSICIAN BERE SRINIVASAN SPECIMEN TYPE PAP Smear Date 07/21/1998 Procedure Cervical/Endocervical, 2 smears received Specimen Adequacy Satisfactory for Evaluation Categorization Within Normal Limits Comment Inflammation Present. Snomed. 07/26/1998 1407 <1> Generation Technician Brook Godwin (ASCP) Pathologist. Delmi Benoit M.D. [...] MISCELLANEOUS SAMPLES / Unknown 07/21/1998 9:39 AM MATERIAL INSPECTOR 07/24/1998 9:39 AM MATERIAL INSPECTOR Historical Provider LAB - PATHOLOGY/C YTOLOGY ORDERABLES from Last 3 Months or Most Recently Relevant to Health Maintenance
--- OUTSIDE RECORDS SUMMARY | 2024-08-08 08:03 | XMS_ITS | Patient Health Summary ---
Author Organization [facility] Address [address] [place] [address] Care Team Providers Care Mdm Developer Name Role Phone Unavailable Primary Care Provider Unavailabl e Note from [facility],non-owned Affiliates and Associated Physician Practices is amultiple site organization consisting of ambulatory clinics and hospital sitesin [place], [place], [place] and [place]. This disclosure is being madepursuant to the Care Everywhere program and may not contain all information available regarding this patient. Last updated 18.[facility] Social History Tobacco Use Types Packs/Day Years Used Date Smoking Tobacco: Never Assessed Sex and Gender Information Value Date Recorded Sex Assigned at Not on file Gender Identity Not on file Sexual Orientation Not on file Procedures * CYTOLOGY SMEAR PAP(Performed 07/21/1998) * CYTOLOGY SMEAR PAP(Performed 04/18/1997) * CYTOLOGY PAP DROP WIRE BUILDER(Performed 04/30/1996) Results * CYTOLOGY SMEAR PAP (07/21/1998 9:39 AM POST TENSIONING IRONWORKER HELPER) Only the most recent of2 resultswithin the time period is included. Result CASE NUMBER [id number] Comment: ORDERING PHYSICIAN BERE SRINIVASAN SPECIMEN TYPE PAP Smear Date 07/21/1998 Procedure Cervical/Endocervical, 2 smears received Specimen Adequacy Satisfactory for Evaluation Categorization Within Normal Limits Comment Inflammation Present. Snomed. 07/26/1998 1407 <1> Industrial Analyst Brook Godwin (ASCP) Pathologist. Delmi Benoit M.D. [...] MISCELLANEOUS SAMPLES / Unknown 07/21/1998 9:39 AM POST TENSIONING IRONWORKER HELPER 07/24/1998 9:39 AM POST TENSIONING IRONWORKER HELPER Historical Provider LAB - PATHOLOGY/C YTOLOGY ORDERABLES * CYTOLOGY PAP DROP WIRE BUILDER (04/30/1996 12:08 PM POST TENSIONING IRONWORKER HELPER) Result CASE NUMBER [id number] Comment: ORDERING PHYSICIAN BERE SRINIVASAN SPECIMEN TYPE PAP Smear Date 04/30/1996 Procedure Cervical/Endocervical Specimen Adequacy Satisfactory for Evaluation Categorization Within Normal Limits *Comment Inflammation Present. Industrial Analyst Brook Pearson(ASCP) MISCELLANEOUS SAMPLES / Unknown 04/30/1996 12:08 PM POST TENSIONING IRONWORKER HELPER 05/03/1996 12:08 PM POST TENSIONING IRONWORKER HELPER Historical Provider LAB - PATHOLOGY/C YTOLOGY ORDERABLES
== END 2024-08-08 07:55 | disposition home or self-care (01) ==
LOC: ANHIMG 07:57
PROVIDERS: PCP Family Medicine; Visit Provider Obstetrics & Gynecology
DX: Z12.31 Encounter for screening mammogram for malignant neoplasm of breast (principal)
CPT/HCPCS: 77063; 77067